=== PATIENT | female | born 1990 | race Two or more races ===

== ENCOUNTER 2023-04-06 19:13 | Emergency (ER) | payer MEDICAID, OTHER ==
[~2023-04-06] VITALS: Ht 154.9 cm; Wt 56.3 kg
[2023-04-06 21:09] LABS: Urine Bacteria NONE SEEN /hpf (None Seen); Urine Blood Negative /uL (Negative); Urine Clarity Clear (Clear); Urine Color Yellow (Yellow); Urine Protein, UAD Negative (Negative); Urine Specific Gravity 1.026 (1.001-1.035); Urine Urobilinogen Normal (Negative); Urine WBC 1 /hpf (0 - 5); Urine pH 5.5 (5.0-8.0)
[2023-04-06 22:11] LABS: Basophils # (auto) 0.1 10 ^3/uL (0-0.2); Basophils % (auto) 0.6 % (0.0-2.0); Eosinophils # (auto) 0.1 10 ^3/uL (0-0.8); Eosinophils % (auto) 1.2 % (0.0-7.0); Hematocrit 40.8 % (36.0-46.0); Hemoglobin 13.7 g/dL (12.2-16.2); Lymphocytes # (auto) 0.4 10 ^3/uL (0.4-5.4); Lymphocytes % (auto) 3.7 % (10.0-50.0); Mean Corpuscular Hemoglobin 30.1 pg (28.0-32.0); Mean Corpuscular Hgb Conc. 33.6 g/dL (32.0-36.0); Mean Corpuscular Volume 89.4 fL (80.0-100.0); Monocytes # (auto) 0.5 10 ^3/uL (0-1.3); Monocytes % (auto) 4.5 % (0.0-12.0); Neutrophils # (auto) 10.6 10 ^3/uL (1.6-8.6); Red Blood Cells 4.56 10^6/uL (4.0-5.20); Red Cell Distribution Width 13.5 % (11.8-14.3); White Blood Cell 11.8 10^3/uL (4.4-10.8)
[2023-04-06 22:28] LABS: Alanine Aminotransferase 17 U/L (7-40); Albumin 4.8 g/dL (3.2-4.8); Alkaline Phosphatase 40 U/L (46-116); Anion Gap 7.9 (5-15); Aspartate Aminotransferase 10 U/L (13-40); BUN/Creatinine Ratio 16.4 (10.0-20.0); Blood Urea Nitrogen 10 mg/dL (9-23); Carbon Dioxide 23.1 mmol/L (20-30); Chloride 106 mmol/L (98-107); Glucose 104 mg/dL (74-106); Lipase 43 U/L (12-53); Potassium 3.7 mmol/L (3.5-5.1); Sodium 137 mmol/L (136-145)
[2023-04-06 22:29] LABS: Bilirubin, Total 1.4 mg/dL (0.2-1.0); Total Protein 7.2 g/dL (5.7-8.2)
[2023-04-06] MEDS ORDERED: ONDANSETRON ODT 4 MG TAB PO ONE (23:15)
[2023-04-06] MEDS ORDERED: metroNIDAZOLE 500 MG TAB PO ONE (23:15)
[2023-04-06] MEDS ORDERED: DICYCLOMINE HCL (10MG/ML) 2 ML AMPULE IM ONE (23:15)
[2023-04-06] MEDS ORDERED: CIPROFLOXACIN HCL 500 MG TAB PO ONE (23:15)
[2023-04-06] MEDS ORDERED: CIPR-173 PO (23:36)
[2023-04-06] MEDS ORDERED: ZOFR4T PO (23:36)
[2023-04-06] MEDS ORDERED: MET500T PO (23:36)
[2023-04-06] MEDS ORDERED: DICY10CA PO (23:36)
[2023-04-07] MEDS ORDERED: DICYCLOMINE HCL 10 MG CAP PO ONE (00:45)
[2023-04-07 00:51] VITALS: BP 114/72; PULSE 74; RESP 16; TEMP 99.9; O2SAT 100
== END 2023-04-07 00:51 | disposition home or self-care (01) ==
LOC: ER 19:13
DX: K52.9 Noninfective gastroenteritis and colitis, unspecified (principal); R10.2 Pelvic and perineal pain; N39.0 Urinary tract infection, site not specified
CPT/HCPCS: 36415; 74176; 80053; 81001; 83690; 84702; 85025; 99284; J0500; Q0162